=== PATIENT | male | born 1955 | race Caucasian/White ===

== ENCOUNTER 2017-01-13 10:53 | Emergency (ER) | payer OTHER ==
[~2017-01-13] VITALS: Ht 180.3 cm; Wt 112.4 kg
[~2017-01-13 10:53] MED LIST: AMBIEN10 M1 PO; FLOMAX0.4 M1 PO; GEMFIBROZIL600 MG PO; PRAVASTATIN SOD40 MG PO; ZESTRIL,PRINIVI10 MG PO; ZOLOFT100 MG PO
[2017-01-13 15:15] VITALS: BP 123/64
== END 2017-01-13 15:16 | disposition home or self-care (01) ==
LOC: EME 10:53
DX: H57.8 Other specified disorders of eye and adnexa (principal)
CPT/HCPCS: 99281; 99284